=== PATIENT | female | born 1950 | race African-American/Black ===

== ENCOUNTER 2024-05-08 18:45 | Emergency (ER) | payer OTHER ==
[~2024-05-08] VITALS: Ht 175.3 cm; Wt 92.1 kg
[2024-05-08 19:02] VITALS: BP 127/75; TEMP 98.3; O2SAT 98
[2024-05-08] MEDS ORDERED: IBUP-1490 PO (20:11)
[2024-05-08] MEDS ORDERED: IBUPROFEN 600 MG TABLET ONE (20:31)
[2024-05-08] MEDS: IBUPROFEN 600 MG TABLET PO ONE (20:36)
== END 2024-05-08 20:38 | disposition home or self-care (01) ==
LOC: ER 18:49
DX: S52.502A Unspecified fracture of the lower end of left radius, initial encounter for closed fracture (principal); I10 Essential (primary) hypertension; W19.XXXA Unspecified fall, initial encounter; Y93.89 Activity, other specified; Y92.89 Other specified places as the place of occurrence of the external cause; Y99.8 Other external cause status
CPT/HCPCS: 73110